=== PATIENT | male | born 1980 | race Two or more races ===

== ENCOUNTER 2019-08-02 13:31 | Emergency (ER) | payer MEDICAID ==
[~2019-08-02] VITALS: Ht 185.4 cm; Wt 149.7 kg
[2019-08-02 16:38] VITALS: BP 128/76
== END 2019-08-02 17:11 | disposition home or self-care (01) ==
LOC: ER 13:31
DX: S22.41XA Multiple fractures of ribs, right side, initial encounter for closed fracture (principal); W17.89XA Other fall from one level to another, initial encounter; Y93.89 Activity, other specified; Y92.89 Other specified places as the place of occurrence of the external cause; Y99.8 Other external cause status
CPT/HCPCS: 71101